=== PATIENT | male | born 1965 | race American Indian/Alaskan Native ===

== ENCOUNTER 2016-05-29 16:23 | Outpatient (CLI) | payer BC ==
--- NOTE | 2016-05-30 08:57 | XRay Report ---
BILATERAL KNEES, 3 VIEWS: HISTORY: Bilateral knee pain. FINDINGS: Bone mineralization is normal. Minimal tibial spine and retropatellar spurring is identified. The medial and lateral compartments are unremarkable. No evidence for fracture, osteochondral defect, bone lesion or joint effusion. The soft tissues are within normal limits. IMPRESSION: Minimal osteoarthritic changes.
== END 2016-05-29 16:24 | disposition home or self-care (01) ==
LOC: SPVIMAG 16:23
DX: M25.561 Pain in right knee (principal)